=== PATIENT | female | born 1955 | race African-American/Black ===

== ENCOUNTER 2025-06-26 12:34 | Inpatient (IN) | payer OTHER ==
[2025-06-26 13:53] VITALS: BMI 22.1
[2025-06-26] MEDS ORDERED: MAGNESIUM HYDROX 2400MG/30ML ORAL SUSPENSION 30 ML CUP PO PRN (14:41)
[2025-06-26] MEDS ORDERED: BENZOCAINE/MENTHOL (CHLORASEPTIC ) LOZENGE MM PRN (14:41)
[2025-06-26] MEDS ORDERED: POLYETHYLENE GLYCOL (HEALTHYLAX) 3350 17 GM PACKET PO PRN (14:41)
[2025-06-26] MEDS ORDERED: DICYCLOMINE HCL 10 MG CAPSULE PO PRN (14:41)
[2025-06-26] MEDS ORDERED: NICOTINE POLACRILEX 2 MG LOZENGE BC PRN (14:41)
[2025-06-26] MEDS ORDERED: ACETAMINOPHEN 325 MG TABLET (FP) PO PRN (14:41)
[2025-06-26] MEDS ORDERED: NALOXONE (NARCAN) HCL 4 MG/0.1 ML SPRAY NS PRN (14:41)
[2025-06-26] MEDS ORDERED: IBUPROFEN 600 MG TABLET (FP) PO PRN (14:41)
[2025-06-26] MEDS ORDERED: guaiFENesin 600 MG TABLET.ER (FP) PO PRN (14:41)
[2025-06-26] MEDS ORDERED: LOPERAMIDE HCL 2 MG CAPSULE PO PRN (14:41)
[2025-06-26] MEDS ORDERED: ONDANSETRON *ODT* 4 MG TABLET SL PRN (14:41)
[2025-06-26] MEDS ORDERED: BISMUTH SUBSALICYLATE 524 MG/30 ML PO PRN (14:41)
[2025-06-26] MEDS ORDERED: NICOTINE POLACRILEX 2 MG GUM BUC PRN (14:41)
[2025-06-26] MEDS ORDERED: METHOCARBAMOL 500 MG TABLET PO PRN (14:41)
[2025-06-26] MEDS ORDERED: MAG HYDROX/AL HYDROX/SIMETH 30 ML UNIT-DOSE CUP PO PRN (14:41)
[2025-06-26] MEDS ORDERED: BENZONATATE 200 MG CAPSULE PO PRN (14:41)
[2025-06-26] MEDS ORDERED: IBUPROFEN 400 MG TABLET (FP) PO PRN (14:41)
[2025-06-26] MEDS ORDERED: hydrOXYzine PAMOATE 25 MG CAPSULE (FP) PO PRN (14:41)
[2025-06-26] MEDS: PRENATAL VITAMINS W/ FOLIC ACID TABLET (FP) PO SCH (17:21)
[2025-06-26] MEDS: THIAMINE 100 MG TABLET PO SCH (22:22)
[2025-06-26] MEDS: MELATONIN 5 MG TABLETS PO SCH (22:22)
[2025-06-27 10:30] LABS: GLUCOSE,RANDOM 85.0 mg/dL (74-106); TOT PROT 8.2 g/dl (6.4-8.2)
[2025-06-27 10:31] LABS: CO2 25.0 mmol/L (21-32)
[2025-06-27 10:33] LABS: ALK PHOS 124.0 U/L (40-150); MCHC 31.8 g/dl (32.2-35.5); MEAN CELL VOLUME 90.7 fl (79.4-94.8); MEAN PLT VOLUME 11.1 fl (9.4-12.3); RDW 13.0 % (12.4-16.4)
[2025-06-27 10:35] LABS: SGOT/AST 20.0 U/L (5-34); SGPT/ALT 8.0 U/L (0-55)
[2025-06-27 10:36] LABS: CREATININE 0.61 mg/dL (0.55-1.3)
[2025-06-27] MEDS: NICOTINE 7 MG/24 HOURS TOPICAL PATCH TD SCH (10:37)
[2025-06-27] MEDS: ENALAPRIL MALEATE 10 MG TABLET PO SCH (15:04)
[2025-06-27] MEDS: ATORVASTATIN CA 10 MG TABLET (FP) PO SCH (22:17)
[2025-06-28 09:39] VITALS: RESP 16; TEMP 97.6
[2025-06-28 13:19] VITALS: BP 133/70; PULSE 67
== END 2025-06-28 14:50 | disposition other institution (70) | DRG 897 ==
LOC: YASAS 12:34 → Y6N 17:06
PROVIDERS: ADMIT Allergy & Immunology; ATTEND Allergy & Immunology
PROC: HZ2ZZZZ Detoxification Services for Substance Abuse Treatment (ICD-10-PCS; principal; 2025-06-26)
DX: F10.20 Alcohol dependence, uncomplicated (principal); F14.10 Cocaine abuse, uncomplicated; F17.210 Nicotine dependence, cigarettes, uncomplicated; E78.5 Hyperlipidemia, unspecified; I10 Essential (primary) hypertension
CPT/HCPCS: 36415; 80053; 80307; 85027; 86780; 93005; 93010